=== PATIENT | female | born 1995 | race Caucasian/White ===

== ENCOUNTER 2016-12-14 20:54 | Emergency (ER) | payer OTHER ==
[~2016-12-14] VITALS: Ht 152.4 cm; Wt 56.0 kg
[~2016-12-14 20:54] MED LIST: BACTRIM DS1 TAB PO; DAPSONE100 MG OR; DOXYCYCL HYC100 MG PO; HYDROXYZ HCL25 MG PO; LORTAB 5 PO; MUPIROCIN2 % EX; SEPTRA DS1 TAB PO; TET/DIP TOX1 ML IM
[2016-12-14] MEDS ORDERED: PERCOCET 5/325M1 TAB PO (23:14)
[2016-12-14] MEDS ORDERED: ORPHENADRINE C100 M1 PO (23:14)
[2016-12-14 23:35] VITALS: BP 107/67
== END 2016-12-14 23:35 | disposition home or self-care (01) | DRG 556 ==
LOC: ED 20:54
DX: M25.511 Pain in right shoulder (principal); V49.9XXA Car occupant (driver) (passenger) injured in unspecified traffic accident, initial encounter; Y92.410 Unspecified street and highway as the place of occurrence of the external cause

== ENCOUNTER → 2018-06-16 | Emergency (ER) | payer OTHER ==
[~2018-06-16] VITALS: Ht 152.4 cm; Wt 53.0 kg
[~2018-06-16] MED LIST changes: +KEFLEX500 M1 PO; +ORPHENADRINE C100 M1 PO; +PERCOCET 5/325M1 TAB PO
[2018-06-16 23:27] VITALS: BP 109/63
== END | disposition home or self-care (01) ==
LOC: ED 21:32
DX: S61.411A Laceration without foreign body of right hand, initial encounter (principal); W26.0XXA Contact with knife, initial encounter; Y93.G3 Activity, cooking and baking; Y92.000 Kitchen of unspecified non-institutional (private) residence as the place of occurrence of the external cause; Y99.9 Unspecified external cause status

== ENCOUNTER 2019-06-03 | Emergency (ER) | payer OTHER ==
[2019-06-03 12:44] LABS: HEMATOCRIT 38.4 % (37.0-47.0); HEMOGLOBIN 12.5 g/dl (12.0-16.0); IMMATURE GRANULOCYTES 0.2 % (0.0-5.0); MEAN CELL VOLUME 87.7 fL CALC (80.0-100.0); MEAN CORPUSCULAR HGB 28.5 pG CALC (26.0-32.0); MEAN CORPUSCULAR HGB CONC 32.6 g/L CALC (32.0-36.0); NEUT# 3.3 thou/uL (2.00-7.15); RED BLOOD COUNT 4.38 mill/uL (4.20-5.60); RED CELL DISTRI WIDTH 13.1 % (11.5-15.5)
[2019-06-03 13:12] LABS: ALBUMIN 4.7 g/dL (3.2-5.0); ALKALINE PHOSPHATASE 54 u/l (38-126); ANION GAP 17 (6-22 (CALC)); BILIRUBIN, TOTAL 1.3 mg/dL (0.0-1.4); BUN 16 mg/dL (7-17); BUN/CREATININE RATIO 22 (12-20 (CALC)); CARBON DIOXIDE 21 mmol/l (22-30); CHLORIDE 104 mmol/l (95-108); CREATININE 0.7 mg/dL (0.5-1.0); GFR > 60 ML/MIN (>=60 (CALC)); GFR FOR AFR.AMER. > 60 ML/MIN (>=60 (CALC)); POTASSIUM 3.9 mmol/l (3.5-5.1); SGOT/AST 18 u/l (14-36); SODIUM 138 mmol/l (137-146); TOTAL PROTEIN 8.2 g/dL (6.3-8.2)
== END 2019-06-03 15:18 | DRG 563 ==
DX: S62.501B Fracture of unspecified phalanx of right thumb, initial encounter for open fracture (principal); W31.82XA Contact with other commercial machinery, initial encounter; Y93.89 Activity, other specified; Y92.89 Other specified places as the place of occurrence of the external cause; Y99.0 Civilian activity done for income or pay